=== PATIENT | female | born 1940 | race Caucasian/White ===

== ENCOUNTER → 2018-08-28 | Outpatient (CLI) | payer MEDICARE, BC ==
[~2018-08-28] MED LIST: AMLO2.5T2 PO; ASPI1TAB PO; CHLO25TA PO; LOSA50TA73 PO; SERT50TA PO; SIMV10TA2 PO; VITA200015 PO
--- NOTE | 2018-08-29 13:52 | RADONC ---
RADIATION ONCOLOGY CONSULTATION NOTE DATE: 08/28/2018 CHART NUMBER: [id number] DIAGNOSIS: Squamous cell carcinoma of skin. ECOG PERFORMANCE STATUS: 0. CONSULTATION NOTE: Ms. 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 HISTORY OF PRESENT ILLNESS: The patient was in the usual state of health but noticed a nodular area on her left thumb. On 06/20/2018, the patient underwent excisional biopsy and pathology revealed an invasive well-differentiated squamous cell carcinoma. The patient is now presenting to discuss her therapeutic options. PAST MEDICAL HISTORY: The patient's past medical history is positive for hypertension, depression, bronchitis, and cardiac problems. ALLERGIES: The patient has NO KNOWN DRUG ALLERGIES. SOCIAL HISTORY: The patient has smoked half-a-pack of cigarettes per day for about approximately 20 years. She quit smoking 20 years ago. She does not abuse alcohol. FAMILY HISTORY: The patient's family history is positive for a father with skin and colon cancer and brother with a brain tumor. REVIEW OF SYSTEMS: The patient's review of systems is positive for some anxiety, depression, as well as some various skin issues, it is otherwise noncontributory. Denies nausea, vomiting, fevers, chills, night sweats, diplopia, headaches, anxiety or depression, anorexia, weight loss, visual disturbances, chest pain, urinary or bowel difficulties, bone pain, or neurological problems. PHYSICAL EXAMINATION The patient is a well-developed, well-nourished female in no acute distress. HEENT exam is normocephalic, atraumatic. Extraocular movements are intact. There is no palpable cervical, supraclavicular, infraclavicular, axillary, or inguinal lymphadenopathy present. Lungs are clear to auscultation and percussion. Heart has a regular rate and rhythm. Abdomen is benign with no hepatosplenomegaly, masses, or tenderness. Breast examination reveals no masses or discharge bilaterally. Skeletal examination reveals no tenderness to pressure or percussion of the bony skeleton. Extremities reveal no clubbing, cyanosis, or edema. The patient's skin over her left thumb shows a surgical scar present consistent with her above history. ASSESSMENT: I have had a lengthy discussion with this patient in regard to her therapeutic options. I do believe she is a candidate for external beam radiation therapy and I have so informed her. I have discussed with the patient in detail the potential benefits, as well as possible acute and chronic sequelae of external beam radiation therapy. We discussed logistics of treatment planning, simulation subsequent fractionated daily radiation treatments. I do however think that she may be a candidate for Mohs surgery, which would be easier and not require 4 weeks of treatment. Indeed it should be less expensive as well. I put a call into Dr. Benjamin, therapist radiation, who recommended that I refer this patient down to Dr. Coleman in [place] for surgical consultation. The patient is being scheduled to see Dr. Coleman in [place] for surgical consultation. I did set her up for a followup in our office following that. She is aware that if she chooses surgery, she can cancel her appointment with us and she will be in good hands with Dr. Coleman. If for some reason she decides against surgery and wishes to undergo radiation, we would have the appointment to see her and initiate treatment without delay. Thank you for allowing us to participate in the care of this very pleasant woman. If I could be of any further assistance or provide you with any information, please free to contact me anytime. As always, warm regards, Braxton Renner MD cc: MD Ravin Morrell MD
== END ==
LOC: M ONCR 09:59
PROVIDERS: ATTEND Radiology Radiation Oncology
DX: C44.629 Squamous cell carcinoma of skin of left upper limb, including shoulder (principal)

== ENCOUNTER → 2020-05-17 | Outpatient (CLI) | payer MEDICARE, BC ==
[~2020-05-17] MED LIST changes: +AMLO1TAB24 PO; -AMLO2.5T2 PO; +AMLO2.5T3 PO; +ANAS1TAB2 PO; +ARIP1TAB4 PO; -ASPI1TAB PO; +ASPI81TA26 PO; +D31000TA2 PO; +LETR2.5T2 PO; +LORA1TAB4 PO; -LOSA50TA73 PO; +LOSA50TA88 PO; +METO1TAB32 PO; +PRIM50TA6 PO; +SERT-138 PO; +SERT-141 PO; -SERT50TA PO; -SIMV10TA2 PO; +SIMV10TA21 PO; +SIMV20TA22 PO
--- NOTE | 2020-06-02 14:04 | DEXA ---
AP SPINE L1 - L4 1.364 1.4 3.2 LT FEMUR TOTAL 1.140 1.1 2.9 LT NECK 1.138 0.7 2.8 RT FEMUR TOTAL 1.064 0.5 2.3 RT NECK 1.017 -0.1 1.9 TOTAL BODY TOTAL OTHER COMMENTS: Normal bone densitometry of the spine and hips. FOLLOW-UP: Recommendation for the next bone density exam: 5 years. JAH
== END ==
LOC: M WHC 10:38
PROVIDERS: ATTEND Internal Medicine Medical Oncology
DX: C50.919 Malignant neoplasm of unspecified site of unspecified female breast (principal); Z78.0 Asymptomatic menopausal state

== ENCOUNTER → 2021-05-02 | Outpatient (CLI) | payer MEDICARE, BC ==
[~2021-05-02] MED LIST changes: +BUSP5TA PO; +ZOLO100T PO
--- NOTE | 2021-05-02 10:07 | REP ---
INDICATION: ABN LFT COMPARISON: None. TECHNIQUE: Real time birch scale ultrasound examination using curved array transducer. FINDINGS: Liver is normal in contour, size, and echogenicity without focal hepatic lesions identified. Pancreas is incompletely evaluated due to interposed bowel gas. The gallbladder is normal and without gallstones, wall thickening, or pericholecystic fluid. No biliary ductal dilatation is appreciated and the common bile duct measures 5.5 mm diameter. Right kidney is normal in reniform shape without hydronephrosis and measures 9.4 x 4.5 x 4.6 cm. No ascites in the visualized right upper quadrant. IMPRESSION: Normal limited right upper quadrant ultrasound <Electronically signed by Jimy Martinez > 05/02/21 100
== END ==
LOC: M RAD 09:19
PROVIDERS: ATTEND Internal Medicine Medical Oncology
DX: R94.5 Abnormal results of liver function studies (principal)

== ENCOUNTER → 2021-05-16 | Outpatient (CLI) | payer MEDICARE, BC ==
--- NOTE | 2021-05-16 13:40 | REP ---
INDICATION: BREAST CA, INCREASING LFT. COMPARISON: None. TECHNIQUE/RADIOTRACER AND DOSE: 20.3 mCi of Technetium-99m MDP was injected and standard whole-body bone scanning is acquired. FINDINGS: There is a normal distribution of skeletal tracer with uptake in bilateral kidneys and in the urinary bladder. There is no evidence to suggest skeletal metastatic disease. There is mild arthritic uptake in the left wrist and left midfoot. IMPRESSION: No evidence to suggest skeletal metastatic disease. <Electronically signed by Rachid Jean > 05/16/21 [id number]
== END ==
LOC: M RAD 10:18
PROVIDERS: ATTEND Internal Medicine Medical Oncology
DX: C50.211 Malignant neoplasm of upper-inner quadrant of right female breast (principal); R94.5 Abnormal results of liver function studies
CPT/HCPCS: 78306; A9503

== ENCOUNTER → 2021-07-21 | Outpatient (CLI) | payer MEDICARE, BC ==
--- NOTE | 2021-07-21 10:32 | REP ---
INDICATION: SMOKER. COMPARISON: CXR 11/15/2005. TECHNIQUE: Low-dose lung CT screening protocol. FINDINGS: Some minor curvilinear fibrosis medial segment right middle lobe at the anterior right lung base. Also some minor fibrotic change in the left lower lobe on the fissure there is a 3 mm pleural based nodule in the posterior segment of the right lower lobe on image 72. There are no other significant parenchymal nodules or interstitial changes there is some mild cylindrical bronchiectatic change. Bone windows grossly unremarkable. No gross cardiomegaly. The aorta shows some calcification in the arch but no aneurysm. IMPRESSION: Lung RADS category 1, negative. No evidence of malignancy. No suspicious finding. For patients with high risk of malignancy, recommend an annual low-dose screening CT. <Electronically signed by Javi Tejada > 07/21/21 1024
== END ==
LOC: M RAD 09:40
PROVIDERS: ATTEND Family Medicine
DX: R91.1 Solitary pulmonary nodule (principal); R79.89 Other specified abnormal findings of blood chemistry; I70.0 Atherosclerosis of aorta

== ENCOUNTER → 2021-09-20 | Outpatient (CLI) | payer MEDICARE, BC ==
[~2021-09-20] MED LIST changes: +LOSA50TA28 PO; -LOSA50TA88 PO
== END ==
LOC: M LABSMTC 10:15
PROVIDERS: ATTEND Anesthesiology
DX: Z01.812 Encounter for preprocedural laboratory examination (principal); Z20.822 Contact with and (suspected) exposure to COVID-19

== ENCOUNTER 2021-12-27 12:28 | Day surgery (SDC) | payer MEDICARE, BC ==
[~2021-12-27] VITALS: Ht 167.6 cm; Wt 81.4 kg
[~2021-12-27 12:28] MED LIST changes: -D31000TA2 PO; +NS 1,000 ML IV ONE; +VITA100093 PO
[2021-12-27] MEDS ORDERED: propofoL 200 MG/20 ML VIAL As Ordered ONE (14:03)
[2021-12-27] MEDS ORDERED: LIDOCAINE 2% 100MG/5ML SDV (FOR ANES.) As Ordered ONE (14:03)
[2021-12-27 14:56] VITALS: BP 131/62
== END 2021-12-27 13:18 | disposition home or self-care (01) ==
LOC: M OPP 12:28
PROVIDERS: ATTEND Internal Medicine Gastroenterology
DX: Z12.11 Encounter for screening for malignant neoplasm of colon (principal); Z86.010 Personal history of colon polyps; Z80.0 Family history of malignant neoplasm of digestive organs; K63.5 Polyp of colon; K57.30 Diverticulosis of large intestine without perforation or abscess without bleeding; K64.0 First degree hemorrhoids; C50.911 Malignant neoplasm of unspecified site of right female breast; Z92.3 Personal history of irradiation; Z92.21 Personal history of antineoplastic chemotherapy; Z79.02 Long term (current) use of antithrombotics/antiplatelets; Z79.82 Long term (current) use of aspirin; Z79.899 Other long term (current) drug therapy; Z88.1 Allergy status to other antibiotic agents; Z87.891 Personal history of nicotine dependence

== ENCOUNTER → 2022-05-18 | Outpatient (CLI) | payer MEDICARE, BC ==
[~2022-05-18] MED LIST changes: -NS 1,000 ML IV ONE
== END ==
LOC: M WHC 13:58
PROVIDERS: ATTEND Internal Medicine Medical Oncology
DX: M85.80 Other specified disorders of bone density and structure, unspecified site (principal); Z79.811 Long term (current) use of aromatase inhibitors

== ENCOUNTER 2024-04-08 07:30 | Day surgery (SDC) | payer MEDICARE, BC ==
[~2024-04-08] VITALS: Ht 167.6 cm; Wt 75.6 kg
[~2024-04-08 07:30] MED LIST changes: +ATIV1TAB10 PO; +EXEM25TA; +EXEM25TA PO; +LORA1TAB23 PO; -LORA1TAB4 PO; +PHENYLEPHRINE 10% OPHTH SOL 5ML OD PRN; +PRIM250T8 PO; +TAMO20TA8 PO; +XALA0.007 OU
[2024-04-08] MEDS: OFLOXACIN 0.3 % (OCUFLOX) OPTH SOL 5ML OD ONE (08:58)
[2024-04-08] MEDS: TROPICAMIDE 1% OPHTH SOLN 15ML OD SCH (08:58)
[2024-04-08] MEDS: PHENYLEPHRINE 2.5% OPHTH SOL 2ML OD SCH (08:58)
[2024-04-08] MEDS: ATROPINE SULFATE 1% OPHTH SOLN 2ML BTL OD SCH (08:59)
[2024-04-08] MEDS: LIDOCAINE 3.5 % 1ML OPHTH TOPICAL GEL OU ONE (08:59)
[2024-04-08] MEDS ORDERED: fentaNYL 100 MCG/2 ML INJECTION As Ordered ONE (09:41)
[2024-04-08] MEDS ORDERED: MIDAZOLAM INJ 2MG/2ML VIAL As Ordered ONE (09:41)
[2024-04-08] MEDS: LIDOCAINE 1% SDV 5ML VIAL As Ordered ONE (09:42)
[2024-04-08] MEDS: BSS IRRIG/VANCO(10MG)/TOBRA(5MG)/EPINEPH(1:1000-0.5CC)500ML BAG-ORONLY As Ordered ONE (09:42)
[2024-04-08] MEDS: CEFUROXIME 1MG/0.1ML INTRACAMERAL INJ As Ordered ONE (09:42)
[2024-04-08] MEDS: DUOVISC (0.50ML VISCOAT/0.85ML PROVISC) OPHTH KIT As Ordered ONE (09:43)
[2024-04-08 09:59] VITALS: BP 159/69; TEMP 97.2; O2SAT 100
== END 2024-04-08 10:17 | disposition home or self-care (01) ==
LOC: M SDC 07:30
PROVIDERS: ATTEND Ophthalmology
DX: H25.11 Age-related nuclear cataract, right eye (principal); H40.811 Glaucoma with increased episcleral venous pressure, right eye; H57.03 Miosis; I10 Essential (primary) hypertension; E78.5 Hyperlipidemia, unspecified; F41.9 Anxiety disorder, unspecified; F32.A Depression, unspecified; G25.0 Essential tremor; Z85.3 Personal history of malignant neoplasm of breast; Z79.82 Long term (current) use of aspirin; Z79.899 Other long term (current) drug therapy; Z92.3 Personal history of irradiation
CPT/HCPCS: 66183; 66987; C1783; J0697; J2250; J3010; V2632